=== PATIENT | male | born 1980 | race Caucasian/White ===

== ENCOUNTER 2021-06-22 23:46 | Emergency (ER) | payer SELFPAY ==
[~2021-06-22] VITALS: Ht 193 cm; Wt 127.3 kg
[2021-06-23 00:12] VITALS: BP 163/110
--- NOTE | 2021-06-23 00:56 | PHYS DOC ---
Past History Past Surgical History: No Surgical History Alcohol Use: Occasionally General Adult EDM: Chief Complaint: OVERDOSE HPI: HPI: ".. I just fucking.. me and my are getting a fucking divorce.. ". She call the [facility] ambulance on me .. because I fucking passed out... it 'ajust too fucking much ..fucking too much alcohol.. I am not fucking suicidal.. let me fucking go home.. I don't want any work up.. I just don't have my fucking phone to call anyone.. ..I know my daughter phone..but she is 15 yrs. old..".. " I have not got my fucking bill fold ..or any fucking money to pay for a fucking cab.." Patient is a 41 year old male with above hx and complaints of intake excessive alcohol tonight. Patient reportedly passed out at home and his called for an ambulance. Pt. currently refusing any labs, x-rays or procedures. did show up but a argument ensued. PAT counselor told her to leave the ED. While attempting get a friend to take patient home, patient absconded from ED without notifying ED staff. Patient on initial contact refusing to wear a mask while in the emergency department. Review of Systems: Review of Systems: Constitutional: Denies fever or chills Eyes: Denies change in visual acuity HENT: Denies nasal congestion or sore throat Respiratory: Denies cough or shortness of breath Cardiovascular: Denies chest pain or edema GI: Denies abdominal pain, nausea, vomiting, bloody stools or diarrhea : Denies dysuria Musculoskeletal: Denies back pain or joint pain Integument: Denies rash Neurologic: Denies headache, focal weakness or sensory changes Endocrine: Denies polyuria or polydipsia Lymphatic: Denies swollen glands Psychiatric: Denies depression or suicidal ideation Family History: Family History: Noncontributory to presentation Current Medications: Current Meds: Current Medications Medications (Trade) Dose Ordered Sig/Jose Enrique Start Time Stop Time Status Last Admin Dose Admin Famotidine (Pepcid) 20 mg 1X ONCE 06/23/21 01:00 06/23/21 01:01 Ondansetron HCl (Zofran) 4 mg 1X ONCE 06/23/21 01:00 06/23/21 01:01 Thiamine HCl (Vitamin B-1) 100 mg 1X ONCE 06/23/21 00:00 06/23/21 00:01 UNV Allergies: Allergies: Allergies Coded Allergies Type Severity Reaction Last Updated Verified No Known Drug Allergies 06/23/21 No Physical Exam: PE: Constitutional: Well developed, well nourished, emotionally distressed, intoxicated in appearance. [] HENT: Normocephalic, atraumatic, bilateral external ears normal, oropharynx moist, no oral exudates, nose normal. [] Eyes: PERRLA, EOMI, conjunctiva normal, no discharge. [] Neck: Normal range of motion, no tenderness, supple, no stridor. [] Cardiovascular: Tachycardia heart rate regular rhythm, no murmur [] Lungs & Thorax: Bilateral breath sounds equal apex with few scattered wheezes on auscultation [] Abdomen: Bowel sounds normal, soft, no tenderness, no masses, no pulsatile masses. [] Skin: Warm, dry, no erythema, no rash. [] Back: No tenderness, no CVA tenderness. [] Extremities: No tenderness, no cyanosis, no clubbing, ROM intact, no edema. [] Neurologic: Alert and oriented X 3, normal motor function, normal sensory function, no focal deficits noted. DTRs +2 patella and brachial. Formula Bottler equal. Ambulatory with slightly staggering gait. Psychologic: Affect angry, judgement-appears intoxicated, mood normal. [] Current Patient Data: Vital Signs: Vital Signs Date Time Temp Pulse Resp B/P (MAP) Pulse Ox O2 Delivery O2 Flow Rate FiO2 06/23/21 00:12 97.3 110 16 163/110 96 Room Air EKG: EKG: Refused by patient [] Radiology/Procedures: Radiology/Procedures: Refused by patient [] Heart Score: C/O Chest Pain: N/A Risk Factors: Risk Factors: DM, Current or recent (<one month) smoker, HTN, HLP, family history of CAD, obesity. Risk Scores: Score 0 - 3: 2.5% MACE over next 6 weeks - Discharge Home Score 4 - 6: 20.3% MACE over next 6 weeks - Admit for Clinical Observation Score 7 - 10: 72.7% MACE over next 6 weeks - Early Invasive Strategies Course & Med Decision Making: Course & Med Decision Making Pertinent Labs and Imaging studies reviewed. (See chart for details) Note pt. eloped from the emergency department-without notifying nursing. Patient discovered gone at approximately 0045 hrs. Impression: 1. Alcohol intoxication 2. Angry [] Dragon Disclaimer: Dragon Disclaimer: This electronic medical record was generated, in whole or in part, using a voice recognition dictation system. Departure Departure: Referrals: PCP,UNKNOWN (PCP) [facility] Disclaimer This chart was dictated in whole or in part using Voice Recognition software in a busy, high-work load, and often noisy Emergency Department environment. It may contain unintended and wholly unrecognized errors or omissions. VANESSA PITTMAN MD Jun 23, 2021 00:56
[2021-06-23] MEDS ORDERED: ONDANSETRON PF 4 MG/2 ML VIAL. IVP ONE (01:00)
[2021-06-23] MEDS ORDERED: THIAMINE 100 MG TABLET. PO ONE ×2 (01:00)
[2021-06-23] MEDS ORDERED: FAMOTIDINE 20 MG TABLET PO ONE (01:00)
== END 2021-06-23 00:44 | disposition left against medical advice (07) ==
LOC: ER 23:46
DX: F10.129 Alcohol abuse with intoxication, unspecified (principal); Y90.8 Blood alcohol level of 240 mg/100 ml or more
CPT/HCPCS: 99281